=== PATIENT | male | born 1950 | race African-American/Black ===

== ENCOUNTER 2017-08-11 19:33 | Emergency (ER) | payer MEDICARE, MEDICAID ==
[~2017-08-11] VITALS: Ht 182.9 cm; Wt 75.0 kg
[2017-08-11] MEDS ORDERED: ONDANSETRON 4MG ODT PO STA (19:55)
[2017-08-11] MEDS ORDERED: SODIUM CHLORIDE 0.9% 1,000 ML IV ONE (19:55)
[2017-08-11 21:01] LABS: BASOPHILS % 1.3 % (0.0-2.0); EOSINOPHILS % 2.1 % (0.0-5.0); HEMATOCRIT. 26.2 % (42.0-52.0); HEMOGLOBIN. 8.8 g/dL (14.0-18.0); LYMPHOCYTES % 37.6 % (20.0-50.0); MEAN CORPUSCULAR HEMOGLOBIN 34.4 pg (28.0-32.0); MEAN CORPUSCULAR VOLUME 102.1 fL (80.0-94.0); MEAN PLATELET VOLUME 8.2 fl (7.4-10.4); MONOCYTES % 5.7 % (2.0-8.0); NEUTROPHILS % 53.3 % (40.0-76.0); PLATELET 177 x1000/uL (130-400); RED BLOOD CELL COUNT 2.56 mill/uL (4.7-6.1); RED CELL DISTRIBUTION WIDTH 17.5 % (11.6-14.6)
[2017-08-11 21:03] LABS: CHLORIDE 118 mEq/L (98-107); INR 1.1
[2017-08-11 21:14] LABS: ETHANOL BLOOD 291 mg/dL
[2017-08-12 06:04] VITALS: BP 146/74
== END 2017-08-12 06:00 | disposition home or self-care (01) ==
LOC: ER 21:31
DX: T51.0X1A Toxic effect of ethanol, accidental (unintentional), initial encounter (principal); S39.92XA Unspecified injury of lower back, initial encounter; F10.921 Alcohol use, unspecified with intoxication delirium; E86.0 Dehydration; K86.9 Disease of pancreas, unspecified; D50.9 Iron deficiency anemia, unspecified; R00.1 Bradycardia, unspecified; K80.20 Calculus of gallbladder without cholecystitis without obstruction; M19.90 Unspecified osteoarthritis, unspecified site; J45.909 Unspecified asthma, uncomplicated; I10 Essential (primary) hypertension; J44.9 Chronic obstructive pulmonary disease, unspecified; Y90.8 Blood alcohol level of 240 mg/100 ml or more; X58.XXXA Exposure to other specified factors, initial encounter; Y92.488 Other paved roadways as the place of occurrence of the external cause
CPT/HCPCS: 36415; 70450; 71045; 74176; 80053; 83605; 83690; 83880; 84484; 85025; 85610; 93005; 99285; G0482; J7030; Q0162

== ENCOUNTER 2021-08-18 17:04 | Inpatient (IN) | payer MEDICARE, MEDICAID ==
[~2021-08-18] VITALS: Ht 167.6 cm; Wt 87.5 kg
[2021-08-18] MEDS ORDERED: ACETAMINOPHEN 325MG TABLET PO ONE (18:00)
[2021-08-18] MEDS ORDERED: HYDROCODONE/ACETAMINOPHEN 10/325MG TABLET PO ONE (20:45)
[2021-08-18 22:58] LABS: BASOPHILS % 0.6 % (0.0-2.0); EOSINOPHILS % 1.1 % (0.0-5.0); HEMATOCRIT. 25.3 % (42.0-52.0); HEMOGLOBIN. 8.5 g/dL (14.0-18.0); LYMPHOCYTES % 20.4 % (20.0-50.0); MEAN CORPUSCULAR HEMOGLOBIN 33.4 pg (28.0-32.0); MEAN PLATELET VOLUME 8.2 fl (7.4-10.4); MONOCYTES % 5.4 % (2.0-8.0); NEUTROPHILS % 72.5 % (40.0-76.0); PLATELET 178 x1000/uL (130-400); RED BLOOD CELL COUNT 2.55 mill/uL (4.7-6.1); RED CELL DISTRIBUTION WIDTH 17.1 % (11.6-14.6)
[2021-08-18 23:03] LABS: CHLORIDE 108 mEq/L (98-107)
[2021-08-18 23:08] LABS: PROTHROMBIN TIME 10.4 sec (9.6-11.0)
[2021-08-18 23:18] LABS: PARTIAL THROMBOPLASTIN TIME 21.1 sec (23.4-31.0)
[2021-08-19] VITALS (10 sets, daily range): BP systolic 104–133; BP diastolic 47–77
[2021-08-19 01:19] LABS: CLARITY URINE CLEAR (CLEAR); COLOR URINE YELLOW (YELLOW); PROTEIN URINE NEGATIVE (NEGATIVE); SPECIFIC GRAVITY URINE 1.009 (1.005-1.030)
[2021-08-19 01:20] LABS: KETONES URINE NEGATIVE (NEGATIVE); LEUKOCYTE ESTERASE URINE 1+ (NEGATIVE); NITRITE URINE POSITIVE (NEGATIVE); OCCULT BLOOD URINE NEGATIVE (NEGATIVE); UROBILINOGEN URINE 0.2 E.U./dL (0.2-1.0)
[2021-08-19] MEDS ORDERED: ONDANSETRON HCL 4MG/2ML INJ IV PRN (02:45)
[2021-08-19] MEDS: MORPHINE SULFATE 2 MG/ML CPJ (NOT FOR IM USE) IV PRN ×3 (03:16→15:13)
[2021-08-19] MEDS: HYDROCODONE/ACETAMINOPHEN 10/325MG TABLET PO PRN ×3 (05:36→22:18)
[2021-08-19] MEDS ORDERED: CEFTRIAXONE 1 G PREMIX 50 ML IV SCH (08:45)
[2021-08-19] MEDS: METOPROLOL TARTRATE 50MG TABLET PO SCH ×2 (09:13→17:00)
[2021-08-19 11:13] LABS: BASOPHILS % 0.4 % (0.0-2.0); EOSINOPHILS % 2.3 % (0.0-5.0); HEMATOCRIT. 23.6 % (42.0-52.0); LYMPHOCYTES % 25.9 % (20.0-50.0); MEAN CORPUSCULAR HEMOGLOBIN 33.4 pg (28.0-32.0); MEAN PLATELET VOLUME 8.2 fl (7.4-10.4); MONOCYTES % 10.5 % (2.0-8.0); NEUTROPHILS % 60.9 % (40.0-76.0); PLATELET 169 x1000/uL (130-400); RED BLOOD CELL COUNT 2.41 mill/uL (4.7-6.1); RED CELL DISTRIBUTION WIDTH 16.6 % (11.6-14.6)
[2021-08-19 11:30] LABS: CHLORIDE 110 mEq/L (98-107)
[2021-08-19] MEDS: CEFTRIAXONE 1,000 MG in DEXTROSE 5% WATER 50 ML IV SCH (12:01)
[2021-08-19 18:52] LABS: TOTAL IRON BINDING CAPACITY 181 ug/dL (250-450)
[2021-08-20] VITALS: BP 115/57
[2021-08-20] MEDS: MORPHINE SULFATE 2 MG/ML CPJ (NOT FOR IM USE) IV PRN (01:05)
[2021-08-20 01:11] LABS: HEMATOCRIT 26.2 % (42.0-52.0); HEMOGLOBIN 8.8 g/dL (14.0-18.0)
[2021-08-20 04:00] VITALS: BP 121/62
[2021-08-20] MEDS ORDERED: VANCOMYCIN HCL 1 GM/VIAL ONE (06:45)
[2021-08-20] MEDS ORDERED: POLYMYXIN B SULFATE 500000 UNITS/VIAL ONE (06:45)
[2021-08-20] MEDS ORDERED: LIDOCAINE HCL/EPINEPHRINE 1%-EPI 1:100,000 20 ML VIAL ONE (06:45)
[2021-08-20] MEDS ORDERED: FENTANYL CITRATE/PF 50MCG/ML 2ML VIAL ONE (07:35)
[2021-08-20] MEDS ORDERED: MIDAZOLAM HCL 2 MG/2 ML VIAL ONE (07:36)
[2021-08-20] MEDS ORDERED: PROPOFOL 200MG/20ML VIAL IV ONE ×2 (07:36→08:08)
[2021-08-20] MEDS ORDERED: ONDANSETRON HCL 4MG/2ML INJ IV PRN ×2 (07:45→08:00)
[2021-08-20] MEDS ORDERED: LABETALOL 5MG/ML SYR 20 MG/4 ML SYRINGE IV PRN (08:00)
[2021-08-20] MEDS ORDERED: MEPERIDINE HCL/PF 25MG/ML CPJ IV PRN (08:00)
[2021-08-20] MEDS ORDERED: HYDROMORPHONE HCL/PF 2MG/ML CPJ IV PRN (08:00)
[2021-08-20] MEDS ORDERED: DEXAMETHASONE 4MG/ML 1ML VIAL ONE (08:08)
[2021-08-20] MEDS ORDERED: HYDROMORPHONE HCL/PF 2MG/ML (OR) ONE (08:38)
[2021-08-20 08:42] LABS: BASOPHILS % 0.8 % (0.0-2.0); EOSINOPHILS % 1.1 % (0.0-5.0); HEMATOCRIT. 25.6 % (42.0-52.0); HEMOGLOBIN. 8.6 g/dL (14.0-18.0); LYMPHOCYTES % 20.3 % (20.0-50.0); MEAN CORPUSCULAR HEMOGLOBIN 32.5 pg (28.0-32.0); MEAN PLATELET VOLUME 8.9 fl (7.4-10.4); NEUTROPHILS % 66.8 % (40.0-76.0); PLATELET 139 x1000/uL (130-400); RED BLOOD CELL COUNT 2.64 mill/uL (4.7-6.1); RED CELL DISTRIBUTION WIDTH 17.3 % (11.6-14.6)
[2021-08-20] MEDS ORDERED: NALOXONE INJ IV PRN (09:45)
[2021-08-20] MEDS ORDERED: ONDANSETRON INJ IV PRN (09:45)
[2021-08-20] MEDS ORDERED: HYDROMORPHONE PCA 10MG/50ML IV PRN (09:45)
[2021-08-20] MEDS: CEFTRIAXONE 1,000 MG in DEXTROSE 5% WATER 50 ML IV SCH (11:13)
[2021-08-20] MEDS: ENOXAPARIN 40MG/0.4ML SYR SUBCUT SCH (11:14)
[2021-08-20] MEDS: SODIUM CHLORIDE 0.45% 1,000 ML IV SCH (11:14)
[2021-08-20 12:00] VITALS: BP 115/68
[2021-08-20 16:00] VITALS: BP 118/68
[2021-08-20] MEDS ORDERED: NALOXONE HCL 0.4MG/ML VIAL IV PRN (22:00)
[2021-08-21] VITALS (8 sets, daily range): BP systolic 103–129; BP diastolic 56–72
[2021-08-21] MEDS: CEFAZOLIN 1000MG PREMIX 50 ML IV SCH ×2 (01:00→04:00)
[2021-08-21] MEDS: SODIUM CHLORIDE 0.45% 1,000 ML IV SCH ×2 (05:15→16:16)
[2021-08-21] MEDS: CEFTRIAXONE 1,000 MG in DEXTROSE 5% WATER 50 ML IV SCH (09:32)
[2021-08-21] MEDS: ENOXAPARIN 40MG/0.4ML SYR SUBCUT SCH (09:33)
[2021-08-21] MEDS: METOPROLOL TARTRATE 50MG TABLET PO SCH ×2 (10:01→16:16)
[2021-08-21 19:50] LABS: HEMATOCRIT 21.2 % (42.0-52.0); MEAN CORPUSCULAR HEMOGLOBIN 32.4 pg (28.0-32.0); MEAN CORPUSCULAR VOLUME 99.4 fL (80.0-94.0); PLATELET 137 x1000/uL (130-400); RED BLOOD CELL COUNT 2.13 mill/uL (4.7-6.1); RED CELL DISTRIBUTION WIDTH 17.2 % (11.6-14.6)
[2021-08-21 19:58] LABS: HEMOGLOBIN 6.9 g/dL (14.0-18.0)
[2021-08-21] MEDS: DOCUSATE SODIUM 250MG CAPSULE PO SCH (20:15)
[2021-08-21] MEDS ORDERED: DIPHENHYDRAMINE 50MG CAPSULE PO PRN (21:15)
[2021-08-21] MEDS: ACETAMINOPHEN 325MG TABLET PO PRN (21:24)
[2021-08-22] VITALS (7 sets, daily range): BP systolic 87–115; BP diastolic 50–65
[2021-08-22 08:49] LABS: BASOPHILS % 0.2 % (0.0-2.0); EOSINOPHILS % 1.5 % (0.0-5.0); HEMATOCRIT. 25.5 % (42.0-52.0); HEMOGLOBIN. 8.5 g/dL (14.0-18.0); LYMPHOCYTES % 15.5 % (20.0-50.0); MEAN CORPUSCULAR HEMOGLOBIN 32.3 pg (28.0-32.0); MEAN CORPUSCULAR VOLUME 96.9 fL (80.0-94.0); MEAN PLATELET VOLUME 8.6 fl (7.4-10.4); MONOCYTES % 10.4 % (2.0-8.0); NEUTROPHILS % 72.4 % (40.0-76.0); PLATELET 151 x1000/uL (130-400); RED BLOOD CELL COUNT 2.63 mill/uL (4.7-6.1); RED CELL DISTRIBUTION WIDTH 17.2 % (11.6-14.6)
[2021-08-22] MEDS: METOPROLOL TARTRATE 50MG TABLET PO SCH ×2 (09:00→17:00)
[2021-08-22] MEDS: DOCUSATE SODIUM 250MG CAPSULE PO SCH (09:04)
[2021-08-22] MEDS: CEFTRIAXONE 1,000 MG in DEXTROSE 5% WATER 50 ML IV SCH (09:04)
[2021-08-22] MEDS: THIAMINE HCL 100MG TABLET PO SCH (09:04)
[2021-08-22] MEDS: FOLIC ACID 1MG TABLET PO SCH (09:04)
[2021-08-22] MEDS: ENOXAPARIN 40MG/0.4ML SYR SUBCUT SCH (09:04)
[2021-08-22 10:59] LABS: PROTHROMBIN TIME 10.8 sec (9.6-11.0)
[2021-08-22 11:22] LABS: FIBRINOGEN > 900 mg/dL (200-400)
[2021-08-22 12:53] LABS: HEMATOCRIT 25.7 % (42.0-52.0); HEMOGLOBIN 8.6 g/dL (14.0-18.0)
[2021-08-22] MEDS: HYDROCODONE/ACETAMINOPHEN 5/325MG TABLET PO PRN ×2 (15:52→20:23)
[2021-08-22] MEDS ORDERED: SODIUM CHLORIDE 0.9% 250 ML IV ONE (17:45)
[2021-08-22] MEDS: SODIUM CHLORIDE 0.45% 1,000 ML IV SCH (20:22)
[2021-08-23] VITALS: BP 105/63
[2021-08-23 04:00] VITALS: BP 98/59
[2021-08-23] MEDS: HYDROCODONE/ACETAMINOPHEN 5/325MG TABLET PO PRN ×3 (06:05→13:53)
[2021-08-23 08:00] VITALS: BP 99/55
[2021-08-23] MEDS: DOCUSATE SODIUM 250MG CAPSULE PO SCH (08:47)
[2021-08-23] MEDS: FOLIC ACID 1MG TABLET PO SCH (08:47)
[2021-08-23] MEDS: THIAMINE HCL 100MG TABLET PO SCH (08:47)
[2021-08-23] MEDS: METOPROLOL TARTRATE 50MG TABLET PO SCH ×2 (08:50→17:00)
[2021-08-23] MEDS: ENOXAPARIN 40MG/0.4ML SYR SUBCUT SCH (08:51)
[2021-08-23] MEDS: CEFTRIAXONE 1,000 MG in DEXTROSE 5% WATER 50 ML IV SCH (08:52)
[2021-08-23 12:00] VITALS: BP 93/54
[2021-08-23 12:02] LABS: BASOPHILS % 0.3 % (0.0-2.0); EOSINOPHILS % 1.7 % (0.0-5.0); HEMATOCRIT. 23.1 % (42.0-52.0); HEMOGLOBIN. 7.7 g/dL (14.0-18.0); LYMPHOCYTES % 13.2 % (20.0-50.0); MEAN CORPUSCULAR HEMOGLOBIN 32.1 pg (28.0-32.0); MEAN CORPUSCULAR VOLUME 96.3 fL (80.0-94.0); MEAN PLATELET VOLUME 8.2 fl (7.4-10.4); MONOCYTES % 8.7 % (2.0-8.0); NEUTROPHILS % 76.1 % (40.0-76.0); PLATELET 189 x1000/uL (130-400); RED CELL DISTRIBUTION WIDTH 16.7 % (11.6-14.6)
[2021-08-23 16:00] VITALS: BP 116/59
[2021-08-23] MEDS ORDERED: MORPHINE SULFATE 2 MG/ML CPJ (NOT FOR IM USE) IV NR (16:12)
[2021-08-23] MEDS: SODIUM CHLORIDE 0.45% 1,000 ML IV SCH (17:15)
[2021-08-23 20:00] VITALS: BP 94/58
[2021-08-23] MEDS: ACETAMINOPHEN 500MG TABLET PO SCH (20:49)
[2021-08-24] VITALS (7 sets, daily range): BP systolic 96–131; BP diastolic 52–70
[2021-08-24] MEDS: ACETAMINOPHEN 500MG TABLET PO SCH ×2 (02:43→06:26)
[2021-08-24] MEDS: DOCUSATE SODIUM 250MG CAPSULE PO SCH (08:15)
[2021-08-24] MEDS: THIAMINE HCL 100MG TABLET PO SCH (08:15)
[2021-08-24] MEDS: FOLIC ACID 1MG TABLET PO SCH (08:15)
[2021-08-24] MEDS: METOPROLOL TARTRATE 50MG TABLET PO SCH (08:23)
[2021-08-24] MEDS: ENOXAPARIN 40MG/0.4ML SYR SUBCUT SCH (08:24)
[2021-08-24] MEDS: CEFTRIAXONE 1,000 MG in DEXTROSE 5% WATER 50 ML IV SCH (08:24)
[2021-08-24] MEDS: LACTULOSE 20G/30ML UDC PO SCH ×2 (09:00→13:00)
[2021-08-24] MEDS ORDERED: HYDROCODONE/ACETAMINOPHEN 5/325MG TABLET PO SCH (09:00)
[2021-08-24] MEDS: ACETAMINOPHEN 325MG TABLET PO PRN (09:48)
[2021-08-24] MEDS: HYDROCODONE/ACETAMINOPHEN 5/325MG TABLET PO PRN (09:49)
[2021-08-24] MEDS ORDERED: SODIUM CHLORIDE 0.9% 1,000 ML IV SCH (11:00)
[2021-08-24 11:08] LABS: EOSINOPHILS % 4.4 % (0.0-5.0); HEMATOCRIT. 22.8 % (42.0-52.0); HEMOGLOBIN. 7.7 g/dL (14.0-18.0); LYMPHOCYTES % 16.9 % (20.0-50.0); MEAN CORPUSCULAR HEMOGLOBIN 32.9 pg (28.0-32.0); MEAN CORPUSCULAR VOLUME 96.8 fL (80.0-94.0); MEAN PLATELET VOLUME 8.1 fl (7.4-10.4); MONOCYTES % 8.7 % (2.0-8.0); PLATELET 211 x1000/uL (130-400); RED BLOOD CELL COUNT 2.35 mill/uL (4.7-6.1); RED CELL DISTRIBUTION WIDTH 16.4 % (11.6-14.6)
[2021-08-24 14:50] LABS: BG BASE EXCESS -13.1 mmol/L (-2.0-2.0); BG CARBOXYHEMOGLOBIN 0.7 % (0.5-1.5); BG DEOXYHEMOGLOBIN 4.8 % (0.0-5.0); BG FRACTION INSPIRED OXYGEN 21; BG HCO3 ACT 12.3 mmol/L (22.0-26.0); BG METHEMOGLOBIN 0.1 % (0.0-1.5); BG OXYGEN SATURATION 95.2 % (92.0-98.5); BG OXYHEMOGLOBIN 94.4 % (94.0-97.0); BG PCO2 26.7 mmHg (35.0-45.0); BG PH 7.281 (7.350-7.450); BG PO2 82.8 mmHg (75.0-100.0); BG SAMPLE SITE RIGHT RADIAL; BG TOTAL HEMOGLOBIN 8.5 g/dL (12.0-18.0); BG VENT MODE ROOM AIR
[2021-08-24] MEDS ORDERED: DOCU250C14 PO (18:44)
[2021-08-24] MEDS ORDERED: HYDR-4001 MT (18:44)
== END 2021-08-24 20:09 | disposition home health service (06) | DRG 480 ==
LOC: ER 17:04 → 6EST 22:11 → ENRESERV 23:25
PROVIDERS: ADMIT Internal Medicine; ATTEND Internal Medicine
PROC: 30233N1 Transfusion of Nonautologous Red Blood Cells into Peripheral Vein, Percutaneous Approach (ICD-10-PCS; 2021-08-19)
PROC: 0QS636Z Reposition Right Upper Femur with Intramedullary Internal Fixation Device, Percutaneous Approach (ICD-10-PCS; principal; 2021-08-20)
DX: S72.21XA Displaced subtrochanteric fracture of right femur, initial encounter for closed fracture (principal); E43 Unspecified severe protein-calorie malnutrition; E87.1 Hypo-osmolality and hyponatremia; E87.2 Acidosis; N17.9 Acute kidney failure, unspecified; N39.0 Urinary tract infection, site not specified; J45.909 Unspecified asthma, uncomplicated; D64.9 Anemia, unspecified; Z68.31 Body mass index [BMI] 31.0-31.9, adult; E87.8 Other disorders of electrolyte and fluid balance, not elsewhere classified; F17.210 Nicotine dependence, cigarettes, uncomplicated; H54.62 Unqualified visual loss, left eye, normal vision right eye; I12.9 Hypertensive chronic kidney disease with stage 1 through stage 4 chronic kidney disease, or unspecified chronic kidney disease; Z20.822 Contact with and (suspected) exposure to COVID-19; M10.9 Gout, unspecified; N18.2 Chronic kidney disease, stage 2 (mild); R53.81 Other malaise; R26.9 Unspecified abnormalities of gait and mobility; I95.9 Hypotension, unspecified; W01.0XXA Fall on same level from slipping, tripping and stumbling without subsequent striking against object, initial encounter; Z82.49 Family history of ischemic heart disease and other diseases of the circulatory system; Z86.73 Personal history of transient ischemic attack (TIA), and cerebral infarction without residual deficits; Z91.19 Patient's noncompliance with other medical treatment and regimen; Y93.89 Activity, other specified; Y92.89 Other specified places as the place of occurrence of the external cause; Y99.8 Other external cause status
CPT/HCPCS: 36415; 36600; 70551; 71045; 73502; 73521; 73552; 76000; 76770; 80048; 80053; 81003; 82375; 82728; 82805; 83540; 83550; 85014; 85018; 85025; 85027; 85049; 85384; 86850; 86900; 86920; 87426; 93005; 93306; 93970; 97110; 97162; 97166; 97530; 97535; 99285; J0690; J0696; J1100; J1170; J1650; J2250; J2270; J2405; J2704; J3010; J3370; J3490; J7030; J7040; J7060; P9016

== ENCOUNTER 2021-08-25 14:31 | Inpatient (IN) | payer MEDICARE, MEDICAID ==
[~2021-08-25] VITALS: Ht 167.6 cm; Wt 78.5 kg
[~2021-08-25 14:31] MED LIST: DOCU250C14 PO
[2021-08-25] MEDS ORDERED: SODIUM CHLORIDE 0.9% 1000ML BAG (SEPSIS BOLUS) IV ONE (15:15)
[2021-08-25] MEDS ORDERED: ONDANSETRON HCL 4MG/2ML INJ IV STA (15:15)
[2021-08-25] MEDS ORDERED: MORPHINE SULFATE 4 MG/ML CPJ (NOT FOR IM USE) IV STA (15:15)
[2021-08-25 16:01] LABS: CHLORIDE 111 mEq/L (98-107)
[2021-08-25 16:04] LABS: PROTHROMBIN TIME 10.9 sec (9.6-11.0)
[2021-08-25 16:07] LABS: HEMATOCRIT. 24.7 % (42.0-52.0); HEMOGLOBIN. 8.3 g/dL (14.0-18.0); MEAN CORPUSCULAR HEMOGLOBIN 31.7 pg (28.0-32.0); MEAN CORPUSCULAR VOLUME 94.5 fL (80.0-94.0); PLATELET 264 x1000/uL (130-400); RED BLOOD CELL COUNT 2.62 mill/uL (4.7-6.1)
[2021-08-25 17:24] LABS: PLATELET ESTIMATE NORMAL
[2021-08-25 18:22] LABS: CLARITY URINE CLEAR (CLEAR); COLOR URINE YELLOW (YELLOW); KETONES URINE NEGATIVE (NEGATIVE); LEUKOCYTE ESTERASE URINE 1+ (NEGATIVE); NITRITE URINE NEGATIVE (NEGATIVE); OCCULT BLOOD URINE NEGATIVE (NEGATIVE); PH URINE 5.5 (4.5-8.0); PROTEIN URINE NEGATIVE (NEGATIVE); SPECIFIC GRAVITY URINE 1.012 (1.005-1.030); UROBILINOGEN URINE 0.2 E.U./dL (0.2-1.0)
[2021-08-26] MEDS ORDERED: ACETAMINOPHEN 325MG TABLET PO PRN (09:15)
[2021-08-26] MEDS ORDERED: LEVOFLOXACIN 500MG PREMIX 100 ML IV NR ×2 (09:15→11:00)
[2021-08-26] MEDS ORDERED: ONDANSETRON HCL 4MG/2ML INJ IV PRN (09:15)
[2021-08-26] MEDS ORDERED: NALOXONE HCL 0.4MG/ML VIAL IV PRN (09:30)
[2021-08-26] MEDS ORDERED: VANCOMYCIN 1.25GM PMX (XELLIA) 250 ML IV SCH (09:30)
[2021-08-26 10:50] VITALS: BP 116/60
[2021-08-26 12:00] VITALS: BP 116/60
[2021-08-26] MEDS: VANCOMYCIN 1.25GM PMX (XELLIA) 250 ML IV SCH (14:00)
[2021-08-26 16:00] VITALS: BP 125/63
[2021-08-26] MEDS: HYDROCODONE/ACETAMINOPHEN 5/325MG TABLET PO PRN ×2 (16:07→21:17)
[2021-08-26 20:00] VITALS: BP 159/84
[2021-08-27] VITALS: BP 117/85
[2021-08-27 04:00] VITALS: BP 132/70
[2021-08-27] MEDS: HYDROCODONE/ACETAMINOPHEN 5/325MG TABLET PO PRN ×3 (05:36→20:24)
[2021-08-27 06:35] LABS: BASOPHILS % 0.3 % (0.0-2.0); EOSINOPHILS % 6.1 % (0.0-5.0); HEMATOCRIT. 24.6 % (42.0-52.0); HEMOGLOBIN. 8.6 g/dL (14.0-18.0); LYMPHOCYTES % 17.7 % (20.0-50.0); MEAN CORPUSCULAR HEMOGLOBIN 33.7 pg (28.0-32.0); MEAN CORPUSCULAR VOLUME 96.7 fL (80.0-94.0); MEAN PLATELET VOLUME 7.5 fl (7.4-10.4); MONOCYTES % 8.2 % (2.0-8.0); NEUTROPHILS % 67.7 % (40.0-76.0); PLATELET 367 x1000/uL (130-400); RED BLOOD CELL COUNT 2.54 mill/uL (4.7-6.1); RED CELL DISTRIBUTION WIDTH 16.7 % (11.6-14.6)
[2021-08-27 06:46] LABS: CHLORIDE 114 mEq/L (98-107)
[2021-08-27 08:00] VITALS: BP 115/74
[2021-08-27] MEDS ORDERED: LEVOFLOXACIN 250MG PREMIX 50 ML IV SCH ×2 (09:00→11:00)
[2021-08-27] MEDS ORDERED: LIDOCAINE HCL 1% 10 MG/ML 10ML VIAL ONE (09:28)
[2021-08-27] MEDS ORDERED: SODIUM BICARBONATE 4% (2.4MEQ) 5ML VIAL IV ONE (09:29)
[2021-08-27 12:00] VITALS: BP 115/86
[2021-08-27] MEDS ORDERED: HYDROCODONE/ACETAMINOPHEN 10/325MG TABLET PO PRN ×2 (13:00→13:45)
[2021-08-27] MEDS: VANCOMYCIN 1.25GM PMX (XELLIA) 250 ML IV SCH (13:55)
[2021-08-27 16:00] VITALS: BP 99/61
[2021-08-27 20:00] VITALS: BP 103/57
[2021-08-28] VITALS: BP 102/53
[2021-08-28] MEDS: HYDROCODONE/ACETAMINOPHEN 5/325MG TABLET PO PRN ×4 (01:22→23:52)
[2021-08-28 04:00] VITALS: BP 110/59
[2021-08-28 08:00] VITALS: BP 96/58
[2021-08-28] MEDS ORDERED: LEVOFLOXACIN 500MG PREMIX 100 ML IV SCH (11:00)
[2021-08-28 12:00] VITALS: BP 126/66
[2021-08-28] MEDS: VANCOMYCIN 1.25GM PMX (XELLIA) 250 ML IV SCH (12:00)
[2021-08-28 16:00] VITALS: BP 108/57
[2021-08-28 20:00] VITALS: BP 117/58
[2021-08-29] VITALS: BP 94/54
[2021-08-29 04:00] VITALS: BP 104/58
[2021-08-29 07:02] LABS: CHLORIDE 116 mEq/L (98-107)
[2021-08-29 08:00] VITALS: BP 113/68
[2021-08-29] MEDS ORDERED: LIDOCAINE HCL/EPINEPHRINE 1%-EPI 1:100,000 20 ML VIAL INFIL ONE (08:45)
[2021-08-29] MEDS ORDERED: METHYLPREDNISOLONE ACETATE 40MG/ML VIAL IM SCH (08:45)
[2021-08-29] MEDS ORDERED: LIDOCAINE HCL 1% 10 MG/ML 10ML VIAL ONE (10:31)
[2021-08-29] MEDS ORDERED: IOHEXOL-300 50 ML BOTTLE IV ONE (10:37)
[2021-08-29] MEDS ORDERED: ROPIVACAINE HCL 10 MG/ML IR NR (11:30)
[2021-08-29 12:00] VITALS: BP 127/64
[2021-08-29] MEDS: LIDOCAINE 5% PATCH TOP SCH (12:30)
[2021-08-29] MEDS: VANCOMYCIN 1.25GM PMX (XELLIA) 250 ML IV SCH (12:52)
[2021-08-29 16:00] VITALS: BP 109/70
[2021-08-29 20:00] VITALS: BP 137/71
[2021-08-30] VITALS (7 sets, daily range): BP systolic 107–147; BP diastolic 56–81
[2021-08-30] MEDS: LIDOCAINE 5% PATCH TOP SCH (10:14)
[2021-08-30] MEDS: HYDROCODONE/ACETAMINOPHEN 5/325MG TABLET PO PRN (18:36)
[2021-08-30 21:32] LABS: BASOPHILS % 0.4 % (0.0-2.0); EOSINOPHILS % 1.6 % (0.0-5.0); HEMATOCRIT. 22.5 % (42.0-52.0); HEMOGLOBIN. 7.6 g/dL (14.0-18.0); LYMPHOCYTES % 15.1 % (20.0-50.0); MEAN CORPUSCULAR HEMOGLOBIN 32.5 pg (28.0-32.0); MEAN CORPUSCULAR VOLUME 96.3 fL (80.0-94.0); MEAN PLATELET VOLUME 6.9 fl (7.4-10.4); MONOCYTES % 6.6 % (2.0-8.0); NEUTROPHILS % 76.3 % (40.0-76.0); PLATELET 450 x1000/uL (130-400); RED BLOOD CELL COUNT 2.34 mill/uL (4.7-6.1)
[2021-08-30 21:35] LABS: CHLORIDE 118 mEq/L (98-107)
== END 2021-08-30 22:26 | DRG 548 ==
LOC: ER 14:53 → MICUSO 18:33 → 6EST 08-26 09:51
PROVIDERS: ADMIT Internal Medicine; ATTEND Internal Medicine
PROC: 0S9C3ZZ Drainage of Right Knee Joint, Percutaneous Approach (ICD-10-PCS; principal; 2021-08-27)
PROC: 3E0U33Z Introduction of Anti-inflammatory into Joints, Percutaneous Approach (ICD-10-PCS; 2021-08-29)
PROC: 3E0U3BZ Introduction of Anesthetic Agent into Joints, Percutaneous Approach (ICD-10-PCS; 2021-08-29)
DX: M00.9 Pyogenic arthritis, unspecified (principal); E43 Unspecified severe protein-calorie malnutrition; G93.41 Metabolic encephalopathy; L03.115 Cellulitis of right lower limb; N17.9 Acute kidney failure, unspecified; N39.0 Urinary tract infection, site not specified; I69.351 Hemiplegia and hemiparesis following cerebral infarction affecting right dominant side; M17.11 Unilateral primary osteoarthritis, right knee; I12.9 Hypertensive chronic kidney disease with stage 1 through stage 4 chronic kidney disease, or unspecified chronic kidney disease; N18.9 Chronic kidney disease, unspecified; E87.8 Other disorders of electrolyte and fluid balance, not elsewhere classified; J45.909 Unspecified asthma, uncomplicated; D64.9 Anemia, unspecified; Z20.822 Contact with and (suspected) exposure to COVID-19; F17.210 Nicotine dependence, cigarettes, uncomplicated; H54.62 Unqualified visual loss, left eye, normal vision right eye; R74.01 Elevation of levels of liver transaminase levels; S83.8X1A Sprain of other specified parts of right knee, initial encounter; X58.XXXA Exposure to other specified factors, initial encounter; Y93.89 Activity, other specified; Y92.89 Other specified places as the place of occurrence of the external cause; Y99.8 Other external cause status; Z82.49 Family history of ischemic heart disease and other diseases of the circulatory system; Z68.27 Body mass index [BMI] 27.0-27.9, adult; R53.81 Other malaise; R26.9 Unspecified abnormalities of gait and mobility; Z98.890 Other specified postprocedural states
CPT/HCPCS: 20611; 36415; 71045; 73502; 73562; 73721; 76942; 77002; 80048; 80053; 80202; 81003; 83605; 84145; 84484; 84550; 85025; 85651; 86140; 87426; 92610; 93005; 93970; 97110; 97162; 97166; 97535; 99285; A6261; C1893; J1030; J1956; J2270; J2405; J2795; J3370; J3490; J7030; Q9967